=== PATIENT | female | born 1955 | race Caucasian/White ===

== ENCOUNTER 2019-12-26 14:54 | Outpatient (CLI) | payer OTHER, SELFPAY ==
--- NOTE | ~2019-12-26 | MM_ITS ---
EXAMINATION: MM screening [facility] BI w taylor HISTORY: Screening mammogram TECHNIQUE: Craniocaudal and mediolateral oblique 3-D tomosynthesis images were obtained and synthetic 2-D images were generated. CAD analysis was submitted and interpreted. COMPARISON: 02/10/2015, 02/05/2014, 12/11/2012 BREAST PARENCHYMAL COMPOSITION: There are scattered areas of fibroglandular density. FINDINGS: There is no evidence of suspicious mass, calcification, or architectural distortion to sugg est malignancy in either breast. There has been no suspicious interval change. IMPRESSION: 1. No mammographic evidence of malignancy. 2. Recommend routine screening mammography in one year. BI-RADS Category 1: Negative Reviewed, dictated and finalized at location A.
== END 2019-12-26 14:55 | disposition home or self-care (01) ==
PROVIDERS: PCP Family Medicine; Visit Provider Family Medicine
DX: Z12.31 Encounter for screening mammogram for malignant neoplasm of breast (principal)
CPT/HCPCS: 77063; 77067

== ENCOUNTER 2020-06-01 13:52 | Emergency (ER) | payer OTHER, SELFPAY ==
--- NOTE | 2020-06-01 14:05 | ED.GENADULT ---
HPI - General Adult General Chief complaint: Urogenital-Female Stated complaint: UTI Time Seen by Provider: 06/01/20 14:06 Source: patient Mode of arrival: ambulatory Limitations: no limitations History of Present Illness HPI narrative: 64-year-old female patient presents to the [facility] with complaints of urinary symptoms for the past 4 days. Patient states she has had burning, urgency and frequency of urination as well as some lower abdominal cramping and pain. Patient states she has tried drinking cranberry juice. Patient states she did use her granddaughter soap for the first time which was new prior to the symptoms. Denies fevers, body aches or chills. Denies nausea, vomiting or diarrhea. Denies any low back pain. Related Data Home Medications Medication Instructions Recorded Confirmed atorvastatin 20 mg PO DAILY 06/01/20 06/01/20 hydrochlorothiazide 25 mg PO DAILY 06/01/20 06/01/20 losartan 25 mg PO DAILY 06/01/20 06/01/20 Allergies Allergy/AdvReac Type Severity Reaction Status Date / Time MYLA Inhibitors Allergy Unknown Other Verified 06/01/20 14:03 iodine Allergy Unknown Other Verified 06/01/20 14:03 quinapril Allergy Unknown Other Verified 06/01/20 14:03 Review of Systems Review of Systems: Narrative: CONSTITUTIONAL: Denies fever, chills, or sweats. EYES: Denies visual changes, redness, or discharge. ENT: Denies rhinorrhea, congestion, sore throat, or otalgia. CARDIOVASCULAR: Denies chest pain, palpitations, or edema. RESPIRATORY: Denies cough or dyspnea. GASTROINTESTINAL: Denies abdominal pain, nausea, vomiting, or diarrhea. GENITOURINARY: Positive pain with urination, urgency and frequency x4 days SKIN: Denies rash or itching. MUSCULOSKELETAL: Denies back pain, joint pain, or myalgia. NEUROLOGIC: Denies headache, numbness, or weakness. PSYCHIATRIC: Denies anxiety or depression. [facility] Past Medical History Medical History (Updated 06/01/20 @ 14:27 by SARAH Mendosa) Anxiety Hypercholesteremia Hypertension Uterine fibroid Surgical History Surgical History (Updated 06/01/20 @ 14:07 by SARAH Mendosa) H/O thyroidectomy H/O: hysterectomy History of tonsillectomy Comments At the time of my signature I agree with nursing past medical history, surgical, social, and family history. There is no relevant family history pertinent to the presenting complaint. Exam Narrative: Exam Narrative: GENERAL: Well-appearing, well-nourished, and in no acute distress. HEAD: Normocephalic, atraumatic. EYES: PERRLA and EOMI. ENT: Nares clear, no rhinorrhea or epistaxis. Mucous membranes moist. NECK: Supple. No lymphadenopathy CHEST: Clear to auscultation. No respiratory distress. HEART: Regular rate and rhythm. No murmur heard. Normal peripheral pulses. ABDOMEN: Soft, nontender, nondistended, normal active bowel sounds. No CVA tenderness on percussion. EXTREMITIES: Normal range of motion. No edema. SKIN: Warm, dry, no rash. NEURO: No focal deficits. Alert and oriented x3. Course Vital Signs Vital signs: Vital Signs Temperature 36.6 C 06/01/20 14:10 Pulse Rate 86 06/01/20 14:10 Respiratory Rate 16 06/01/20 14:10 Blood Pressure 156/79 H 06/01/20 14:10 Pulse Oximetry 99 06/01/20 14:10 Temperature 36.6 C 06/01/20 14:10 Pulse Rate 86 06/01/20 14:10 Respiratory Rate 16 06/01/20 14:10 Blood Pressure 156/79 H 06/01/20 14:10 Pulse Oximetry 99 06/01/20 14:10 Vital signs reviewed Medical Decision Making Differential Diagnosis Differential Diagnosis: Differential diagnosis: Uncomplicated lower UTI, uncomplicated UTI, pyelonephritis Plan of care for patient is to discharge home with antibiotic for possible urinary tract infection. We will send her urine off to the lab for culture. Patient verbalized understanding denies any other questions or concerns Vital Signs Vital Signs: Vital Signs Temperature 36.6 C 06/01/20 14:10 Pulse Rate 86 06/01/20 14:10 Re
[2020-06-01 14:10] VITALS: BP 156/79; PULSE 86; RESP 16; TEMP 36.6; O2SAT 99
== END 2020-06-01 14:29 | disposition home or self-care (01) ==
PROVIDERS: Emergency Provider Nurse Practitioner Family
DX: N30.00 Acute cystitis without hematuria (principal); E78.00 Pure hypercholesterolemia, unspecified; I10 Essential (primary) hypertension
CPT/HCPCS: 81003; 87077; 87086; 87088; 87186; 99213; G0463

== ENCOUNTER 2020-12-15 09:29 | Emergency (ER) | payer OTHER, SELFPAY ==
[2020-12-15] VITALS (18 sets, daily range): BP systolic 124–155; BP diastolic 69–86; PULSE 79–109; RESP 13–25; TEMP 36.9; O2SAT 58–100
--- NOTE | ~2020-12-15 | XR_ITS ---
EXAMINATION: XR chest 2V DATE: 12/15/2020 10:05 INDICATION: Shortness of breath. Left-sided chest pain. TECHNIQUE: PA and lateral views of the chest were obtained. COMPARISON: Chest radiograph dated 01/19/11 FINDINGS: The lungs remain clear with no focal airspace opacities, pulmonary edema, pleural effusion or pneumot horax. The cardiomediastinal silhouette is normal. Mild thoracic spondylosis. IMPRESSION: 1. No acute cardiopulmonary disease. Reviewed, dictated and finalized at location A.
--- NOTE | 2020-12-15 09:36 | ECG_ITS ---
Measurements Intervals [place] Rate: 103 P: 17 CA: 137 QRS: -35 QRSD: 125 T: 52 QT: 340 QTc: 445 Interpretive Statements SINUS TACHYCARDIA LEFT AXIS DEVIATION INTRAVENTRICULAR CONDUCTION DELAY POOR R WAVE PROGRESSION, ANTERIOR LEADS MINIMAL Q WAVES- HIGH LATERAL LEADS BORDERLINE ST-T WAVE ABNORMALITY- HIGH LATERAL LEADS BASELINE ARTIFACT- I, II, III, AVR, AVF, V1, V3-V6 ABNORMAL ECG Electronically Signed On 12-15-2020 9:44:55 CDT by Raciel Key D.O.
[2020-12-15 09:56] LABS: Basophils Absolute Auto 0.1 K/mm3 (0.0-0.1); Basophils Percent Auto 1.2 % (0.2-1.2); Eosinophils Absolute Auto 0.1 K/mm3 (0-0.3); Eosinophils Percent Auto 1.4 % (0-4.4); Hematocrit 44.4 % (37.0-47.0); Hemoglobin 14.3 g/dL (12.0-15.0); Immature Granulocyte Absolute 0.02 K/mm3 (0.00-0.031); Immature Granulocyte Percent A 0.3 % (0-0.5); Lymphocytes Absolute Auto 1.42 K/mm3 (0.9-3.2); Lymphocytes Percent Auto 21.5 % (18.3-44.2); Mean Corpuscular HGB Conc 32.2 g/dl (32-36); Mean Corpuscular Volume 90.1 fl (80-100); Monocytes Absolute Auto 0.4 K/mm3 (0.1-0.6); Monocytes Percent Auto 6.5 % (2.6-8.5); Neutrophils Absolute Auto 4.6 K/mm3 (1.3-6.7); Neutrophils Percent Auto 69.1 % (45.5-73.1); Platelet Count Result 331 k/mm3 (150-375); Red Blood Count 4.93 M/mm3 (4.2-5.4); Red Cell Distribution Width 13.2 % (11.5-14.5); White Blood Count 6.6 K/mm3 (4.5-10.0)
[2020-12-15 10:05] LABS: Anion Gap 9 mmol/L (8-16); Blood Urea Nitrogen 14 mg/dL (7-17); Calcium 10.5 mg/dL (8.4-10.2); Carbon Dioxide 24 mmol/L (22-30); Chloride 101 mmol/L (98-107); Estimated CRCL calculation 77 ml/min; Estimated Glomerular Filt Rate > 60; Glucose 111 mg/dL (65-110); Potassium 3.5 mmol/L (3.4-5.0); Sodium 134 mmol/L (137-145)
--- NOTE | 2020-12-15 10:28 | PC.NURSE ---
Talked to Kala in lab at 10:25, added on PT INR PTT and Trop I Baseline BNP
[2020-12-15 10:53] LABS: Prothrombin Time 12.6 Seconds (11.1-14.7)
[2020-12-15 10:54] LABS: Partial Thromboplastin Time 33.3 SECONDS (22.3-36.8)
[2020-12-15 11:16] LABS: D Dimer 0.44 ug/mL (<0.48)
[2020-12-15 11:29] LABS: NT Pro B Type Natriuretic Pept 102 pg/mL (5-100); Troponin I < 0.012 ng/mL (0.000-0.034)
--- NOTE | 2020-12-15 11:30 | ED.SOB ---
HPI - SOB/Dyspnea History of Present Illness HPI Narrative: 65 yo female w/ h/o HTN presents to the ED c/o shortness of breath. She reports that this has happened intermittently for a long. time. This episode started yesterday. It is usually associated with chest congestion, possibly brought on by allergies. Oxygen saturation during traige was reportedly 89. No fever, cough, leg swelling, calf pain. She also reports a brief episode of sharp left sided chest pain yesterday. Related Data Home Medications Medication Instructions Recorded Confirmed atorvastatin 20 mg PO DAILY 06/01/20 11/19/20 hydrochlorothiazide 25 mg PO DAILY 06/01/20 11/19/20 aspirin 81 mg tablet,delayed 81 mg PO DAILY 09/07/20 11/19/20 release Allergies Allergy/AdvReac Type Severity Reaction Status Date / Time MYLA Inhibitors Allergy Unknown Other Verified 11/19/20 10:44 iodine Allergy Unknown Other Verified 11/19/20 10:44 quinapril Allergy Unknown Other Verified 11/19/20 10:44 Review of Systems Review of Systems: All systems reviewed & are unremarkable except as noted in HPI and below Constitutional: Constitutional: Denies fever(s) ENT: Denies dizziness Cardiovascular: Cardiovascular: Denies radiating jaw, neck or arm pain Gastrointestinal: Gastrointestinal: Denies nausea Musculoskeletal: Musculoskeletal: Denies back pain Neurologic: Denies dizziness and Denies weakness PMFSH Past Medical History Medical History Anxiety BMI over 35 Hypercholesteremia Hypertension Uterine fibroid Surgical History Surgical History H/O thyroidectomy H/O: hysterectomy History of tonsillectomy Family History Family History Father Lung cancer Tobacco abuse Mother Alzheimer's disease Sibling Lung cancer Sibling Kidney transplant recipient Social History Social History Tobacco type: cigarettes Second hand tobacco smoke exposure: Yes Alcohol intake: never Substance use: never Substance use type: does not use 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 Gender identity (if verbalized by the patient): Female Exam Const: General: healthy appearing, no acute distress and alert Orientation/consciousness: patient oriented x3 HENMT: Head: normal to inspection Neck: Neck: normal visual inspection and no lymphadenopathy Chest: Chest palpation & inspection: no tenderness Resp: Effort & Inspection: normal respiratory effort Auscultation: clear to auscultation bilaterally, no rales, no rhonchi and no wheezes Cardio: Jugular venous distension: no JVD Rate: regular rate Rhythm: regular rhythm Heart sounds: no murmurs GI: Inspection: non-distended GI Palp: Yes Soft to palpation and No Tenderness to palpation present (GI) Skin: General skin exam: normal color Neuro: General: patient oriented x3 and moves all extremities Speech: normal speech Extrem: General: no edema Psych: Appearance: well kempt Affect: normal affect Course Vital Signs Vital signs: Vital Signs Pulse Rate 109 H 12/15/20 09:35 Respiratory Rate 25 H 12/15/20 09:35 Blood Pressure 150/79 H 12/15/20 09:35 Pulse Oximetry 93 12/15/20 09:35 Temperature 36.9 C 12/15/20 09:36 Pulse Rate 82 12/15/20 14:30 Respiratory Rate 16 12/15/20 14:30 Blood Pressure 145/82 H 12/15/20 14:30 Pulse Oximetry 95 12/15/20 14:30 MDM - SOB/Dyspnea MDM Narrative Medical decision making narrative: Apparently mildly hypoxic on arrival. Resolved without any treatment. oxygen saturation >96% on trial of ambulation. EKG has possible ischemic changes, but nothing acute. Troponin negative. Pain free since yesterday, so further testing unlikley helpful. I disc
== END 2020-12-15 14:30 | disposition home or self-care (01) ==
PROVIDERS: Emergency Provider Emergency Medicine; PCP Family Medicine
DX: R06.02 Shortness of breath (principal); R07.9 Chest pain, unspecified; E78.00 Pure hypercholesterolemia, unspecified; I10 Essential (primary) hypertension; E89.0 Postprocedural hypothyroidism; F17.210 Nicotine dependence, cigarettes, uncomplicated; Z79.82 Long term (current) use of aspirin
CPT/HCPCS: 36415; 71046; 80048; 83880; 84484; 85025; 85380; 85610; 85730; 93005; 99284

== ENCOUNTER 2022-02-23 08:47 | Outpatient (CLI) | payer MEDICARE, SELFPAY ==
--- NOTE | ~2022-02-23 | MM_ITS ---
EXAMINATION: MM screening [facility] BI w taylor HISTORY: Screening mammogram TECHNIQUE: Craniocaudal and mediolateral oblique 3-D tomosynthesis images were obtained and synthetic 2-D images were generated. CAD analysis was submitted and interpreted. COMPARISON: 12/26/2019, 02/10/2015, 02/05/2014 BREAST PARENCHYMAL COMPOSITION: There are scattered areas of fibroglandular density. FINDINGS: No suspicious mass, calcification, or architectural distortion are identified in either marco ast to suggest malignancy. There has been no suspicious interval change. IMPRESSION: 1. No mammographic evidence of malignancy. 2. Recommend routine screening mammography in one year. BI-RADS Category 1: Negative Reviewed, dictated and finalized at location A.
== END 2022-02-23 08:48 | disposition home or self-care (01) ==
PROVIDERS: PCP Physician Assistant; Visit Provider Physician Assistant
DX: Z12.31 Encounter for screening mammogram for malignant neoplasm of breast (principal)
CPT/HCPCS: 77063; 77067

== ENCOUNTER 2022-04-19 09:50 | Emergency (ER) | payer MEDICARE, SELFPAY ==
[2022-04-19 09:50] VITALS: BP 120/79; PULSE 83; RESP 18; TEMP 37.1; O2SAT 100
--- NOTE | 2022-04-19 10:03 | ED.URI ---
HPI - URI/Sore Throat General Chief Complaint: Upper Respiratory Infection Stated Complaint: Sinus Time Seen by Provider: 04/19/22 10:03 Source: patient Mode of arrival: ambulatory Limitations: no limitations History of Present Illness HPI Narrative: 66-year-old female presents with complaint of nasal congestion, sinus pressure, bilateral ear pressure postnasal drainage, sore throat for week. Taking Coricidin with little relief. Afebrile. All systems reviewed and negative except as noted above. Related Data Home Medications Medication Instructions Recorded Confirmed atorvastatin 20 mg tablet 20 mg PO DAILY 06/01/20 04/19/22 hydrochlorothiazide 25 mg tablet 25 mg PO DAILY 06/01/20 04/19/22 aspirin 81 mg tablet,delayed 81 mg PO DAILY 09/07/20 04/19/22 release (Adult Aspirin Regimen) cholecalciferol (vitamin D3) 25 25 mcg PO DAILY 04/19/22 04/19/22 mcg (1,000 unit) tablet (Vitamin D3) losartan 50 mg tablet 25 mg PO DAILY 04/19/22 04/19/22 vitamin B complex (B 1 tablet PO DAILY 04/19/22 04/19/22 Complex-Vitamin B12 tablet) Allergies Allergy/AdvReac Type Severity Reaction Status Date / Time MYLA Inhibitors Allergy Unknown Other Verified 04/19/22 10:02 iodine Allergy Unknown Other Verified 04/19/22 10:02 quinapril Allergy Unknown Other Verified 04/19/22 10:02 Review of Systems Review of Systems: CONSTITUTIONAL: Denies fever, chills, or sweats. EYES: Denies visual changes, redness, or discharge. ENT: Reports rhinorrhea, congestion, sore throat, sinus pressure and otalgia. CARDIOVASCULAR: Denies chest pain, palpitations, or edema. RESPIRATORY: Denies cough or dyspnea. GASTROINTESTINAL: Denies abdominal pain, nausea, vomiting, or diarrhea. GENITOURINARY: Denies dysuria or hematuria. SKIN: Denies rash or itching. MUSCULOSKELETAL: Denies back pain, joint pain, or myalgia. NEUROLOGIC: Denies headache, numbness, or weakness. PSYCHIATRIC: Denies anxiety or depression. All other systems reviewed are negative, except as documented in HPI. 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 Gender identity (if verbalized by the patient): Female Comments reviewed Exam Narrative: GENERAL: This is a well-nourished, well-developed patient, in no apparent distress. HEAD: normocephalic, atraumatic. EYES: PERRL. Sclera clear/white. Vision is grossly intact. EARS: External ears normal, auditory canals clear and without drainage, TMs normal without perforation. Hearing grossly intact. NOSE: External nose normal with clear nasal drainage, erythema and swelling to both nares, bilateral maxillary sinus tenderness. THROAT: Mucous membranes moist, Erythema, clear postnasal drainage. NECK: Neck supple, non-tender without lymphadenopathy, masses or thyromegaly. CARDIOVASCULAR: Regular rate and rhythm without murmurs, gallops, or rubs. RESPIRATORY: Clear to auscultation. Breath sounds equal bilaterally. No wheezes, rales, or rhonchi. SKIN: warm, Dry, intact with no suspicious lesions or rash, good texture and turgor. NEURO: awake, alert, and oriented to person, place and time. There were no
== END 2022-04-19 10:11 | disposition home or self-care (01) ==
PROVIDERS: Emergency Provider Nurse Practitioner Family; PCP Physician Assistant
DX: J01.90 Acute sinusitis, unspecified (principal); I10 Essential (primary) hypertension; Z79.82 Long term (current) use of aspirin
CPT/HCPCS: 99213; G0463

== ENCOUNTER 2022-07-06 12:10 | Outpatient (CLI) | payer MEDICARE, SELFPAY ==
--- NOTE | ~2022-07-06 | US_ITS ---
EXAMINATION: US venous doppler [facility] DATE: 07/06/2022 12:44 INDICATION: Left lower limb pain. TECHNIQUE: Grayscale ultrasound images without and with compression and Doppler ultrasound images of the left lower extremity veins were obtained. COMPARISON: None. FINDINGS: The visualized portions of left common femoral vein, profunda (deep) femoral vein, femoral vein, popl iteal vein, peroneal veins, posterior tibial veins, and greater saphenous vein outflow are patent. IMPRESSION: 1. No deep venous thrombosis. Reviewed, dictated and finalized at location A. 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
== END 2022-07-06 12:11 | disposition home or self-care (01) ==
LOC: ANHIMG 12:17
PROVIDERS: PCP Physician Assistant; Visit Provider Physician Assistant
DX: M79.605 Pain in left leg (principal); M79.89 Other specified soft tissue disorders
CPT/HCPCS: 93971

== ENCOUNTER → 2023-02-24 10:03 | Outpatient (CLI) | payer MEDICARE, SELFPAY ==
--- NOTE | ~2023-02-24 | DEXA_ITS ---
Bone Density Report Name: HORTENSIA DE LA ROSA Age: 67 Sex: Female Ethnicity: White Date of : 1955 Indication: postmenopausal; screening for osteoporosis; height loss; hysterectomy; Referring Provider: JESSE, MARQUIS Study: Bone densitometry was performed. Exam Date: February 24, 2023 Accession number: [id number] Bone Density: Region BMD T-score Z-score Classification AP Spine (L1-L4) 0.881 -1.5 0.3 Osteopenia Femoral Neck (Left) 0.650 -1.8 -0.2 Osteopenia Total Hip (Left) 0.782 -1.3 0.0 Osteopenia Femoral Neck (Right) 0.635 -1.9 -0.3 Osteopenia Total Hip (Right) 0.742 -1.6 -0.3 Osteopenia Total Hip Mean 0.762 -1.5 -0.2 Osteopenia World Health Organization criteria for BMD impression classify patients as: Normal (T-score at or above -1.0), Osteopenia (T-score between -1.0 and -2.5), or Osteoporosis (T-score at or below -2.5). 10-year Fracture Risk(1): Major Osteoporotic Fracture 9.9% Hip Fracture 1.4% Reported Risk Factors: [place] (), Neck BMD=0.635, BMI=35.1 (1) FRAX(R) Version 3.08. Fracture probability calculated for an untreated patient. Fracture probability may be lower if the patient has received treatment. Clinical Information Provided by Patient: Has used the following medications: Vitamin D Has the following medical conditions: Hysterectomy Patient maximum height was 63.5 Menopause Age: 47 Drinks caffeinated beverages Onset of menses at age 13 Number of children 1 Impression: The patient has low bone mass, based on the Right Femoral Neck T-score. The patient has an estimated ten-year risk of hip fracture of 1.4% and an estimated ten-year risk of major fracture of 9.9%, based on the WHO FRAX algorithm. Discussion: BONE DENSITY IS LOW AT ONE OR MORE SKELETAL SITES. This patient's lowest T-score is low at one or more skeletal sites. It meets the World Health Organization's (WHO) criteria for ?low bone mass? (T-score between -1.0 and -2.5). The patient's 10-year risk of fracture as calculated by FRAX is less than the threshold where pharmacological therapy is recommended by the National Osteoporosis Foundation (NOF). However, all treatment decisions require clinical judgment and consideration of individual patient factors, including patient preferences, comorbidities, previous drug use, risk factors not captured in the FRAX model (e.g., frailty, falls, vitamin D deficiency, increased bone turnover, interval significant decline in bone density) and possible under or overestimation of fracture risk by FRAX. The patient should follow a healthful lifestyle (good nutrition with adequate calcium and vitamin D, and appropriate weight-bearing exercise). Follow-Up: Consider repeating this study in 2 to 3 years to reassess this patient's status, or sooner if there is some new clini
--- NOTE | ~2023-02-24 | MM_ITS ---
EXAMINATION: MM screening [facility] BI w taylor HISTORY: Screening mammogram TECHNIQUE: Craniocaudal and mediolateral oblique 3-D tomosynthesis images were obtained and synthetic 2-D images were generated. CAD analysis was submitted and interpreted. COMPARISON: 02/23/2022, 12/26/2019, 02/10/2015 bilateral screening mammogram examinations BREAST PARENCHYMAL COMPOSITION: There are scattered areas of fibroglandular density. FINDINGS: There is no evidence of suspicious mass, calcification, or architectural distortion to sugg est malignancy in either breast. There has been no suspicious interval change. IMPRESSION: 1. No mammographic evidence of malignancy. 2. Recommend routine screening mammography in one year. BI-RADS Category 1: Negative Reviewed, dictated and finalized at location A.
== END ==
PROVIDERS: PCP Physician Assistant; Visit Provider Physician Assistant
DX: Z12.31 Encounter for screening mammogram for malignant neoplasm of breast (principal); Z78.0 Asymptomatic menopausal state; M85.88 Other specified disorders of bone density and structure, other site; M85.852 Other specified disorders of bone density and structure, left thigh; M85.851 Other specified disorders of bone density and structure, right thigh
CPT/HCPCS: 77063; 77067; 77080

== ENCOUNTER 2024-03-27 13:24 | Outpatient (CLI) | payer MEDICARE, SELFPAY ==
--- NOTE | ~2024-03-27 | MM_ITS ---
EXAMINATION: MM screening [facility] BI w taylor HISTORY: Screening TECHNIQUE: Craniocaudal and mediolateral oblique 3-D tomosynthesis images were obtained and synthetic 2-D images were generated. CAD analysis was submitted and interpreted. COMPARISON: Comparison to multiple prior studies sequentially, with oldest reviewed study dated 01/29. BREAST PARENCHYMAL COMPOSITION: Not dense: There are scattered areas of fibroglandular density. FINDINGS: There is no evidence of suspicious mass, calcification, or architectural distortion to sugg est malignancy in either breast. There has been no suspicious interval change. IMPRESSION: 1. No mammographic evidence of malignancy. 2. Recommend routine screening mammography in one year. BI-RADS Category 1: Negative Reviewed, dictated and finalized at location B. 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
== END 2024-03-27 13:25 | disposition home or self-care (01) ==
PROVIDERS: PCP Physician Assistant; Visit Provider Physician Assistant
DX: Z12.31 Encounter for screening mammogram for malignant neoplasm of breast (principal)
CPT/HCPCS: 77063; 77067

== ENCOUNTER 2024-10-21 00:40 | Day surgery (SDC) | payer MEDICARE, SELFPAY ==
[2024-10-08 08:46] VITALS: BMI 27.4
[2024-10-21 07:51] VITALS: BP 148/76; PULSE 83; TEMP 36.3; O2SAT 100
--- NOTE | 2024-10-21 07:58 | WPDANESEPPF ---
Anes - Initial Pre Proc Eval Procedure: Operation Date: 10/21/24 09:00 Proposed Procedures p Colonoscopy - Johnnie Bravo MD Date/Time: 10/21/24 07:58 Surgeon: Johnnie Bravo MD Pre Op Diagnosis: Other fecal abnormalities Patient Data Age: 69 Gender: F Height: 1.6 m Weight: 70.3 kg Last Vital Signs Temp 36.3 C L 10/21/24 07:51 Pulse 83 10/21/24 07:51 BP 148/76 H 10/21/24 07:51 Pulse Ox 100 10/21/24 07:51 O2 Del Method Room Air 10/21/24 07:51 Allergies Allergy/AdvReac Type Severity Reaction Status Date / Time iodine Allergy Unknown Other Verified 10/21/24 07:50 Home Medications ?Medication ?Instructions ?Recorded ?Confirmed ?Type atorvastatin 20 mg tablet 20 mg PO DAILY 06/01/20 10/08/24 History hydrochlorothiazide 25 mg tablet 25 mg PO DAILY 06/01/20 10/08/24 History aspirin 81 mg tablet,delayed 81 mg PO DAILY 09/07/20 10/08/24 History release (Adult Aspirin Regimen) Patient hx anesthesia problems: none Family hx anesthesia problems: none Results Review: All pre-operative results and documents have been reviewed as part of the pre-operative evaluation. [facility] Past Medical History Medical History (Updated 10/19/24 @ 13:07 by Jostin Wallace DO) Endometriosis BMI over 35 Anxiety Uterine fibroid Hypertension Hypercholesteremia Surgical History Surgical History H/O thyroidectomy H/O: hysterectomy History of tonsillectomy Family History Family History Father Lung cancer Tobacco abuse Mother Alzheimer's disease Sibling Lung cancer Sibling Kidney transplant recipient Social History Social History Smoking status: Former smoker Tobacco type: cigarettes Second hand tobacco smoke exposure: Yes Alcohol intake: never Substance use: never Substance use type: does not use Living arrangements: alone Occupation/Education: occupation 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 Gender identity (if verbalized by the patient): Female Spiritual care concerns: No Anes - Eval Final PreProcedure Day of Procedure 10/21/24 07:58 Patient weight: overweight Heart: regular rate and rhythm Lungs: clear to auscultation Airway: Mallampati scale class II Neurological: alert and oriented Last oral intake: >/= 8 hours ASA classification: II Emergent: no Anesthetic plan: proceed Anesthesia type and monitoring: general GIVS and standard monitoring Results Review: All pre-operative results and documents have been reviewed as part of the pre-operative evaluation. Informed Consent: The patient's anesthetic plan and its attendant risks and benefits were discussed with the patient/family/POA. Questions were solicited and answers provided to the satisfaction of the patient/family/POA.
[2024-10-21] MEDS: LACTATED RINGERS 1,000 ML 150 ML IV CONT (08:02)
--- NOTE | 2024-10-21 08:59 | PM.HPGS ---
History of Present Illness History of Present Illness Consent: Risks, benefits, and alternatives have been discussed and questions answered. Patient agrees to proceed with procedure. Chief complaint: Other fecal abnormalities Narrative: Marquita Bowman is a 69 year old female here for first colonoscopy, had + cologuard Review of Systems Review of Systems: All systems reviewed & are unremarkable except as noted in HPI and below PMFSH Past Medical History Medical History (Updated 10/21/24 @ 08:59 by Johnnie Bravo MD) Positive colorectal cancer screening using Cologuard test Endometriosis BMI over 35 Anxiety Uterine fibroid Hypertension Hypercholesteremia Surgical History Surgical History H/O thyroidectomy H/O: hysterectomy History of tonsillectomy Family History Family History Father Lung cancer Tobacco abuse Mother Alzheimer's disease Sibling Lung cancer Sibling Kidney transplant recipient Social History Social History Smoking status: Former smoker Tobacco type: cigarettes Second hand tobacco smoke exposure: Yes Alcohol intake: never Substance use: never Substance use type: does not use Living arrangements: alone Occupation/Education: occupation 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 Gender identity (if verbalized by the patient): Female Spiritual care concerns: No Meds Home Medications and Allergies Home Medications ?Medication ?Instructions ?Recorded ?Confirmed ?Type atorvastatin 20 mg tablet 20 mg PO DAILY 06/01/20 10/08/24 History hydrochlorothiazide 25 mg tablet 25 mg PO DAILY 06/01/20 10/08/24 History aspirin 81 mg tablet,delayed 81 mg PO DAILY 09/07/20 10/08/24 History release (Adult Aspirin Regimen) Allergies Allergy/AdvReac Type Severity Reaction Status Date / Time iodine Allergy Unknown Other Verified 10/21/24 07:50 Vital Signs Vital Signs - 24 hr 10/21/24 07:51 Temperature 97.4 F L Pulse Rate 83 Blood Pressure 148/76 H Pulse Oximetry 100 Oxygen Delivery Room Air Exam Const: General: comfortable and no acute distress HENMT: Face/Nose/Sinus: Normal nares present Eyes: General: appearance normal, both eyes and all related structures Neck: Neck: no JVD Resp: Auscultation: clear to auscultation bilaterally Cardio: Rate: regular rate Rhythm: regular rhythm GI: Inspection: non-distended GI Palp: Yes Soft to palpation Skin: General skin exam: normal color Neuro: General: gait normal Speech: normal speech Extrem: General: normal to inspection Psych: Mental Status: mental status grossly normal Assessment and Plan Assessment and plan (1) Positive colorectal cancer screening using Cologuard test: Code(s): R19.5 - Other fecal abnormalities Status: Acute Assessment and Plan: colonoscopy
[2024-10-21 09:14] VITALS: BP 102/61; PULSE 69; RESP 18; O2SAT 99
[2024-10-21 09:24] VITALS: BP 110/67; PULSE 67; RESP 16; O2SAT 100
[2024-10-21 09:34] VITALS: BP 112/78; PULSE 64; RESP 16; O2SAT 100
== END 2024-10-21 09:39 | disposition home or self-care (01) ==
PROVIDERS: PCP Physician Assistant; Referring Provider Physician Assistant; Visit Provider Internal Medicine Gastroenterology
PROC: 0DJD8ZZ Inspection of Lower Intestinal Tract, Via Natural or Artificial Opening Endoscopic (ICD-10-PCS; CPT 45378; principal; 2024-10-21 09:00)
DX: R19.5 Other fecal abnormalities (principal); K64.8 Other hemorrhoids; Z87.891 Personal history of nicotine dependence
CPT/HCPCS: 45378; J2704; J7120

== ENCOUNTER 2025-04-01 10:07 | Outpatient (CLI) | payer MEDICARE, SELFPAY ==
--- NOTE | ~2025-04-01 | MM_ITS ---
EXAMINATION: MM screening danny BI w taylor HISTORY: Screening. TECHNIQUE: Craniocaudal and mediolateral oblique 3-D tomosynthesis images were obtained and synthetic 2-D images were generated. CAD analysis was submitted and interpreted. COMPARISON: 2023, 2022, and 2021 BREAST PARENCHYMAL COMPOSITION: Not Dense: There are scattered areas of fibroglandular FINDINGS: No suspicious masses are seen. There are no suspicious calcifications. No unexplained architectural distortion is seen. There are no skin or nipple abnormalities identified. There is no adenopathy seen on the images submitted. IMPRESSION: No mammographic evidence to suggest malignancy is seen. The patient may return to screening mammography as per ACR guidelines. BI-RADS 1 - Negative. Reviewed, dictated and finalized at location B. [employer]
--- NOTE | ~2025-04-01 | DEXA_ITS ---
Bone Density Report Name: HORTENSIA DE LA ROSA Age: 69 Sex: Female Ethnicity: White Date of : 1955 Indication: osteopenia; height loss; hysterectomy; Referring Provider: JESSE, MARQUIS Study: Bone densitometry was performed. Exam Date: April 01, 2025 Accession number: [id number] Bone Density: Region BMD T-score Z-score Classification AP Spine(L1-L4) 0.876 -1.6 0.4 Osteopenia Femoral Neck (Left) 0.625 -2.0 -0.3 Osteopenia Total Hip (Left) 0.657 -2.3 -0.9 Osteopenia Femoral Neck (Right) 0.578 -2.4 -0.7 Osteopenia Total Hip (Right) 0.633 -2.5 -1.1 Osteoporosis Total Hip Mean 0.645 -2.4 -1.0 Osteopenia World Health Organization criteria for BMD impression classify patients as: Normal (T-score at or above -1.0), Osteopenia (T-score between -1.0 and -2.5), or Osteoporosis (T-score at or below -2.5). 10-year Fracture Risk: FRAX not reported because: Some T-score for Spine Total or Hip Total or Femoral Neck at or below -2.5 Previous Exams: -- Region Exam Age BMD T-score BMD Change BMD Change Date g/cm2 vs Baseline vs Previous -- AP Spine (L1-L4) 04/01/2025 69 0.876 -1.6 -0.6% -0.6% 02/24/2023 67 0.881 -1.5 Total Hip(Left) 04/01/2025 69 0.657 -2.3 -16.0%* -16.0%* 02/24/2023 67 0.782 -1.3 Total Hip(Right) 04/01/2025 69 0.633 -2.5 -14.7%* -14.7%* 02/24/2023 67 0.742 -1.6 -- *Denotes significance at 95% confidence level, LSC for AP Spine = 0.022 g/cm2, LSC for Total Hip = 0.027 g/cm2 Clinical Information Provided by Patient: Has the following medical conditions: Hysterectomy Patient maximum height was 63 Menopause Age: 47 No regular weight bearing exercise Onset of menses at age 12 Number of children 1 Impression: The patient has osteoporosis, based on the Right Total Hip T-score. The BMD for the Total Hip(Left) decreased, changing by -16.0% since the last DXA exam. The BMD for the Total Hip(Right) decreased, changing by -14.7% since the last DXA exam. Discussion: INCREASED RISK OF FRACTURE. BONE DENSITY IS UNDESIRABLY LOW AT ONE OR MORE SKELETAL SITES, CONSISTENT WITH POSTMENOPAUSAL OSTEOPOROSIS. This patient's lowest T-score meets the World Health Organization's (WHO) criteria for osteoporosis at one or more sites (T-score -2.5 or below). In untreated patients, the risk of osteoporotic fracture increases approximately two-fold for each 1.0 SD decrease in T-score. Low bone density is not the only risk factor for fracture; also consider factors such as patient's age, frailty or poor health, risk of falling, risk of injury, previous osteoporotic fracture, family history of osteoporosis, cigarette smoking, low body weight, etc. Not everyone with low bone mineral density has osteoporosis; osteomalacia and other metabolic bone disorders should also be considered. Patients who have osteoporosis should be evaluated for specific diseases and conditions (secondary causes) that may cause or contribute to bone loss. The [place] Association of Clinical Endocrinologists (AACE) and National Osteoporosis Foundation (NOF) recommend pharmacologic intervention for all postmenopausal women whose T-score is in this range. The patient should follow a healthful lifestyle (good nutrition with adequate calcium and vitamin D, and appropriate weight-bearing exercise). Follow-Up: Consider a repeat BMD and Vertebral Fracture Assessment (VFA) exam in 2 years or sooner if medically necessary, to reassess this patient's status. Reported by: YASMIN on 04/01/2025 10:38:00 AM. Reviewed, dictated and finalized at location A.
== END 2025-04-01 10:08 | disposition home or self-care (01) ==
PROVIDERS: PCP Physician Assistant; Visit Provider Physician Assistant
DX: Z12.31 Encounter for screening mammogram for malignant neoplasm of breast (principal); M81.0 Age-related osteoporosis without current pathological fracture; M85.89 Other specified disorders of bone density and structure, multiple sites; Z78.0 Asymptomatic menopausal state
CPT/HCPCS: 77063; 77067; 77080